=== PATIENT | male | born 1975 | race American Indian/Alaskan Native ===

== ENCOUNTER 2020-01-28 13:19 | Emergency (ER) | payer OTHER ==
--- NOTE | 2020-01-28 13:50 | Event Note ---
ED Screening Note ED Screening Note: smashed finger in car door has laceration to the left middle finger tdap was 3 years ago able to move no numbness or weakness pmhx none allergy none This initial assessment/diagnostic orders/clinical plan/treatment(s) is/are subject to change based on patients health status, clinical progression and re- assessment by fellow clinical providers in the ED. Further treatment and workup at subsequent clinical providers discretion. Patient/guardian urged not to elope from the ED as their condition may be serious if not clinically assessed and managed. Initial orders include: xr right hand
--- NOTE | 2020-01-28 14:19 | XRay Report ---
RIGHT HAND 3 VIEWS INDICATION: smashed right middle finger in door with laceratio. COMPARISON: No relevant prior imaging study available. FINDINGS: No acute skeletal abnormality. There is soft tissue swelling in the right long finger. No radiodense foreign bodies. IMPRESSION: 1. No acute skeletal abnormality. Signer Name: Hector Hernandez MD Signed: 01/28/2020 2:14 PM Workstation Name: [email or web address]
--- NOTE | 2020-01-28 14:56 | Emergency Department Report ---
ED Laceration HPI - HPI Chief Complaint: Wound/Laceration Stated Complaint: RT FINGER LAC/PAIN Time Seen by Provider: 01/28/20 13:49 Occurred When: Today Location: Upper Extremity (Right middle fingertip) Severity: mild Tetanus Status: Up to Date Laceration Symptoms: Yes Pain, No Foreign Body Sensation, No Numbness, No Weakness Other History: Slammed in door sustaining laceration ED Review of Systems ROS: Stated complaint: RT FINGER LAC/PAIN Other details as noted in HPI Comment: All other systems reviewed and negative ED Past Medical Hx - Past Medical History Previous Medical History?: No - Surgical History Past Surgical History?: No - Social History Smoking Status: Never Smoker Substance Use Type: None - Medications Home Medications: Home Medications Medication Instructions Recorded Confirmed Last Taken Type cephALEXin [Keflex] 500 mg PO Q8HR #15 cap 01/28/20 Unknown Rx Laceration Physical Exam - Exam General: Vital signs noted. No distress. Alert and acting appropriately. Wound Length (cm): 2 Laceration Location: Upper Extremity (Right middle fingertip) Laceration Exam: Yes Normal Distal CMS, No Foreign Body, No Exposed Tendon, Vessel, or Nerve, No Tendon Injury ED Course Vital Signs 01/28/20 13:28 Temperature 98 F Pulse Rate 123 H Respiratory 18 Rate Blood Pressure 201/129 O2 Sat by Pulse 97 Oximetry - Laceration /Wound Repair Right middle fingertip Wound Location: upper extremity Wound's Depth, Shape: superficial Wound Explored: clean Irrigated w/ Saline (ccs): 100 Betadine Prep?: Yes Anesthesia: 1% Lidocaine Volume Anesthetic (ccs): 2 Wound Debrided: minimal Wound Repaired With: sutures Suture Size/Type: 5:0, proline Number of Sutures: 5 Layer Closure?: No Sterile Dressing Applied?: Yes ED Medical Decision Making - Radiology Data Radiology results: report reviewed neg hand - Medical Decision Making minor lac no tendon injury xr neg repaired, pcp fu vitals improved 170/100, 100 HR - Differential Diagnosis lac, fx Critical care attestation.: If time is entered above; I have spent that time in minutes in the direct care of this critically ill patient, excluding procedure time. ED Disposition Clinical Impression: Laceration of middle finger of right hand without complication Qualifiers: Encounter type: initial encounter Qualified Code(s): S61.212A - Laceration without foreign body of right middle finger without damage to nail, initial encounter Disposition: DC-01 TO HOME OR SELFCARE Is pt being admited?: No Condition: Good Instructions: Laceration Care, Adult Prescriptions: cephALEXin [Keflex] 500 mg PO Q8HR #15 cap Referrals: ELI MYERS MD [Staff Physician] - 3-5 Days Time of Disposition: 15:04
[2020-01-28 15:06] VITALS: BP 170/100
== END 2020-01-28 15:18 | disposition home or self-care (01) ==
LOC: ED 13:19
DX: S61.212A Laceration without foreign body of right middle finger without damage to nail, initial encounter (principal); Z79.899 Other long term (current) drug therapy; X58.XXXA Exposure to other specified factors, initial encounter; Y93.89 Activity, other specified; Y92.89 Other specified places as the place of occurrence of the external cause; Y99.8 Other external cause status